=== PATIENT | female | born 1940 | race Caucasian/White ===

== ENCOUNTER → 2016-10-11 | Outpatient (CLI) | payer OTHER ==
[~2016-10-11] MED LIST: ASPERDRINK81 MG PO; ASPIRIN EC81 M1 PO; CALCIUM500 MG PO; GLUCOPHAGE XR750 MG PO; HYDRALAZINE; ISOSORBIDE DINI30 MG PO; K-DUR 20 MEQ T20 MEQ PO; MAGNESIUM400 MG PO; MEDROLDOSEPACK PO; MOTION RELIEF25 MG PO; NORVASC 5 MG TAB5 MG PO; PRADAXA75 MG PO; PREMARIN0.3 MG PO; SOTALOL 120 MG120 M1 PO; STROVITE1 EACH PO; SYNTHROID100 MCG PO; TOPROL XL50 MG PO; ULTRAM 50MG TAB50 MG PO; VITAMIN C500 MG PO; VITAMIN D-40400 UNIT PO; ZESTRIL40 MG PO; ZOCOR5 MG PO; ZYRTEC10 M2 PO
== END ==
LOC: RAD 13:45
DX: Z12.31 Encounter for screening mammogram for malignant neoplasm of breast (principal)

== ENCOUNTER → 2017-10-17 | Outpatient (CLI) | payer OTHER | LOC: RAD 14:29 | DX: Z12.31 Encounter for screening mammogram for malignant neoplasm of breast (principal) ==

== ENCOUNTER → 2018-10-29 | Outpatient (CLI) | payer OTHER | LOC: RAD 13:50 | DX: Z12.31 Encounter for screening mammogram for malignant neoplasm of breast (principal) ==

== ENCOUNTER → 2019-11-08 | Outpatient (CLI) | payer OTHER | LOC: BC 10:27 | PROVIDERS: ATTEND Specialist | DX: Z12.31 Encounter for screening mammogram for malignant neoplasm of breast (principal) ==